=== PATIENT | female | born 1960 | race Caucasian/White ===

== ENCOUNTER 2017-02-01 07:55 | Day surgery (SDC) | payer OTHER ==
[2017-01-31 08:57] VITALS: BMI 32.3
[~2017-02-01 07:55] MED LIST: LACTATED RINGERS 1,000 ML IV SCH; LIDOCAINE 1% 20 ML VIAL (10MG/ML) FOR IV START INTRADERMA PRN
--- NOTE | 2017-02-01 08:11 | P.GSHP ---
History of Present Illness H&P Date: 02/01/17 CHIEF COMPLAINT: Colon screen HISTORY OF PRESENT ILLNESS: The patient is a 56-year-old female who presents for colon screen. Lower endoscopy was offered for further evaluation and management. PAST MEDICAL HISTORY: Please see list. PAST SURGICAL HISTORY: Please see list. MEDICATIONS: Please see list. ALLERGIES: Please see list. SOCIAL HISTORY: No illicit drug use FAMILY HISTORY: No reports of Crohn disease or ulcerative colitis. REVIEW OF ORGAN SYSTEMS: CONSTITUTIONAL: No reports of fevers or chills. PHYSICAL EXAM: VITAL SIGNS: Stable GENERAL: Well-developed pleasant in no acute distress. HEENT: No scleral icterus. Extraocular movements grossly intact. Moist buccal mucosa. NECK: Supple without lymphadenopathy. CHEST: Unlabored respirations. Equal bilateral excursions. CARDIOVASCULAR: Regular rate and rhythm. Distal 2+ pulses. ABDOMEN: Soft, nontender, nondistended. MUSCULOSKELETAL: No clubbing, cyanosis, or edema. ASSESSMENT: 1. Colon screen. PLAN: 1. Recommend proceeding with a lower endoscopy Past Medical History Past Medical History: Asthma, Cancer, Fibromyalgia, GERD/Reflux, Hearing Disorder / Deafness, Hyperlipidemia, Osteoarthritis (OA), Thyroid Disorder Additional Past Medical History / Comment(s): HX COLON CA., TACHYCARDIA, Numbness/tingling LEFT LEG, Herniated disc Back, Irritable Bowel Syndrome, HX OF ELEVATED NLIVER ENZYMES, MIGRAINE HEADACHES History of Any Multi-Drug Resistant Organisms: None Reported Past Surgical History: Back Surgery, Bowel Resection, Section, Cholecystectomy, Hernia Repair, Hysterectomy, Tubal Ligation Additional Past Surgical History / Comment(s): Oophorectomy, BOWEL SURGERY X2. Colonoscopy Past Anesthesia/Blood Transfusion Reactions: Family History of Problems w/ Anesthesia, Motion Sickness, Postoperative Nausea & Vomiting (PONV) Additional Past Anesthesia/Blood Transfusion Reaction / Comment(s): MOTHER ALSO- PONV Past Psychological History: Anxiety, Panic Disorder Additional Psychological History / Comment(s): PANIC ATTACKS Smoking Status: Former smoker Past Alcohol Use History: Rare Additional Past Alcohol Use History / Comment(s): STARTED SMOKING AT AGE 18 QUIT AT AGE 20 2 CIG A DAY Past Drug Use History: None Reported Additional Drug Use History / Comment(s): SMOKED ONLY A TEENAGER - Past Family History Father Family Medical History: Cancer Mother Family Medical History: Deep Vein Thrombosis (DVT) Brother(s) Family Medical History: Cancer Additional Family Medical History / Comment(s): BONE CANCER/ #2 BRAIN CANCER Sister(s) Family Medical History: Cancer, Deep Vein Thrombosis (DVT), Pulmonary Embolus Additional Family Medical History / Comment(s): MELENOMA CANCER Medications and Allergies Home Medications Medication Instructions Recorded Confirmed Type Albuterol Inhaler [Ventolin Hfa 2 puff INHALATION Q4HR PRN 12/26/13 01/31/17 History Inhaler] Atenolol 50 mg PO QAM 12/26/13 01/31/17 History DULoxetine HCL [Cymbalta] 60 mg PO BID 12/26/13 01/31/17 History Hyoscyamine Sulfate [Levbid] 0.375 mg PO BID 12/26/13 01/31/17 History Levothyroxine Sodium [Synthroid] 125 mcg PO DAILY 12/26/13 01/31/17 History Biotin 5 mg PO DAILY 07/28/14 01/31/17 History Budesonide-Formot 160-4.5 Mcg 2 puff INHALATION BID PRN 07/28/14 01/31/17 History [Symbicort 160-4.5 Mcg Inhaler] Cholecalciferol [Vitamin D3] 5,000 unit PO FR 07/28/14 01/31/17 History Rizatriptan Benzoate [Maxalt] 10 mg PO BID PRN 07/28/14 01/31/17 History clonazePAM [Clonazepam] 0.5 mg PO DAILY PRN 01/28/15 01/31/17 History HYDROcodone/APAP 7.5-325MG [[place] 1 each PO Q6HR PRN 03/06/15 01/31/17 History 7.5-325] Esomeprazole Magnesium [NexIUM 40 mg PO BID 01/31/17 01/31/17 History 24Hr] Allergies Allergy/AdvReac Type Severity Reaction Status Date / Time cephalexin monohydrate Allergy Severe Dyspnea Verified 01/31/17 08:25 [From Keflex] Sulfa (Sulfonamide Allergy Severe Dyspnea Verified 01/31/17 08:25 Antibiotics) aspirin Allergy RINGING IN Verified 01/31/17 08:25 EARS, NAUSEA, DIZZY Beef Containing Products Allergy Nausea & Verified 01/31/17 08:25 Vomiting Cephalosporins Allergy Dyspnea, Verified 01/31/17 08:25 Hives clarithromycin Allergy Dyspnea, Verified 01/31/17 08:25 Hives Penicillins Allergy Dyspnea, Verified 01/31/17 08:25 Hives pregabalin [From Lyrica] Allergy BLURRED Verified 01/31/17 08:59 VISION
[2017-02-01 08:37] VITALS: RESP 16; TEMP 97.7
[2017-02-01] MEDS ORDERED: ONDANSETRON 4 MG/2 ML VIAL IVP STA (08:39)
[2017-02-01] MEDS ORDERED: PROPOFOL 10 MG/ML 20 ML VIAL IV ONE (09:03)
--- NOTE | 2017-02-01 09:33 | P.PCN ---
Date of Procedure: 02/01/17 Preoperative Diagnosis: Postoperative Diagnosis: Procedure(s) Performed: Implants: Indications for Procedure: Operative Findings: Description of Procedure: PREOPERATIVE DIAGNOSIS: Colonoscopy screening. History of colon cancer, transverse colon, stage I. POSTOPERATIVE DIAGNOSIS: Colonoscopy screening. History of colon cancer, transverse colon, stage I. Diverticulosis, scattered. External hemorrhoids, grade 3. OPERATION: Colonoscopy to the ileocecal valve and appendiceal orifice. SURGEON: Leonor Tse MD. ANESTHESIA: MAC. INDICATIONS: The patient is a 56-year-old female who presents for colonoscopy screening. She was diagnosed and treated for colon cancer in 2013. Benefits and risks were described and informed consent was obtained. DESCRIPTION OF PROCEDURE: The patient had undergone Prepopik colon prep. She had been brought into the operating room and laid in the left lateral decubitus position. After adequate intravenous sedation, the rectum was examined with 2% lidocaine jelly. External hemorrhoids were encountered. The rectal tone was within normal limits. No lesions were palpated in the rectal vault. An Olympus colonoscope was advanced until the ileocecal valve and appendiceal orifice were clearly viewed. The prep was fair with irrigation needed for clear visualization of the mucosal folds. The scope was removed with visualization of each mucosal fold. Scattered diverticulosis was encountered. No colonic polyps were found. The anastomosis along the transverse colon was carefully visualized without recurrence. No evidence of focal colitis was found. Retroflexion of the scope demonstrated grade 2 internal hemorrhoids without active bleeding or inflammation. The colon was desufflated. The patient had tolerated the procedure well. Withdrawal time was over 6 minutes. FINDINGS: Internal hemorrhoids, grade 2. External prolapsed hemorrhoids. No arteriovenous malformations. No adenomatous polyps. No focal colitis. Colon anastomosis along transverse colon unremarkable. RECOMMENDATIONS: Repeat colonoscopy yearly through 2018, next due in January 2018. Plan - Discharge Summary New Discharge Prescriptions: No Action Albuterol Inhaler [Ventolin Hfa Inhaler] 2 puff INHALATION Q4HR PRN PRN Reason: Shortness Of Breath Atenolol 50 mg PO QAM Hyoscyamine Sulfate [Levbid] 0.375 mg PO BID DULoxetine HCL [Cymbalta] 60 mg PO BID Levothyroxine Sodium [Synthroid] 125 mcg PO DAILY Budesonide-Formot 160-4.5 Mcg [Symbicort 160-4.5 Mcg Inhaler] 2 puff INHALATION BID PRN PRN Reason: asthma Cholecalciferol [Vitamin D3] 5,000 unit PO FR Rizatriptan Benzoate [Maxalt] 10 mg PO BID PRN PRN Reason: Migraine Headache Biotin 5 mg PO DAILY clonazePAM [Clonazepam] 0.5 mg PO DAILY PRN PRN Reason: Anxiety Ondansetron Odt [Zofran Odt] 4 mg PO Q8HR PRN #20 tab PRN Reason: Nausea And Vomiting HYDROcodone/APAP 7.5-325MG [[place] 7.5-325] 1 each PO Q6HR PRN PRN Reason: Pain Esomeprazole Magnesium [NexIUM 24Hr] 40 mg PO BID Discharge Medication List Albuterol Inhaler [Ventolin Hfa Inhaler] 2 puff INHALATION Q4HR PRN 12/26/13 [ History] Atenolol 50 mg PO QAM 12/26/13 [History] DULoxetine HCL [Cymbalta] 60 mg PO BID 12/26/13 [History] Hyoscyamine Sulfate [Levbid] 0.375 mg PO BID 12/26/13 [History] Levothyroxine Sodium [Synthroid] 125 mcg PO DAILY 12/26/13 [History] Biotin 5 mg PO DAILY 07/28/14 [History] Budesonide-Formot 160-4.5 Mcg [Symbicort 160-4.5 Mcg Inhaler] 2 puff INHALATION BID PRN 07/28/14 [History] Cholecalciferol [Vitamin D3] 5,000 unit PO FR 07/28/14 [History] Rizatriptan Benzoate [Maxalt] 10 mg PO BID PRN 07/28/14 [History] clonazePAM [Clonazepam] 0.5 mg PO DAILY PRN 01/28/15 [History] Ondansetron Odt [Zofran Odt] 4 mg PO Q8HR PRN #20 tab 02/04/15 [Rx] HYDROcodone/APAP 7.5-325MG [[place] 7.5-325] 1 each PO Q6HR PRN 03/06/15 [History] Esomeprazole Magnesium [NexIUM 24Hr] 40 mg PO BID 01/31/17 [History] Follow up Appointment(s)/Referral(s): Leonor Tse MD [STAFF PHYSICIAN] - As Needed Patient Instructions/Handouts: Diverticulosis (DC), Diverticulitis Diet (DC), Hemorrhoids (GEN) Activity/Diet/Wound Care/Special Instructions: Followup colonoscopy January 2018 Discharge Disposition: HOME SELF-CARE
[2017-02-01 10:09] VITALS: BP 105/70; PULSE 55
== END 2017-02-01 10:21 | disposition home or self-care (01) ==
LOC: ORWHC2ENDO 07:55
PROVIDERS: ATTEND Surgery Plastic and Reconstructive Surgery
DX: Z12.11 Encounter for screening for malignant neoplasm of colon (principal); Z85.038 Personal history of other malignant neoplasm of large intestine; E78.5 Hyperlipidemia, unspecified; M79.7 Fibromyalgia; E07.9 Disorder of thyroid, unspecified; J45.909 Unspecified asthma, uncomplicated; K64.1 Second degree hemorrhoids; K64.8 Other hemorrhoids; K57.30 Diverticulosis of large intestine without perforation or abscess without bleeding; F41.9 Anxiety disorder, unspecified; K21.9 Gastro-esophageal reflux disease without esophagitis; F41.0 Panic disorder [episodic paroxysmal anxiety]; G43.909 Migraine, unspecified, not intractable, without status migrainosus; Z88.1 Allergy status to other antibiotic agents; Z88.2 Allergy status to sulfonamides; Z88.8 Allergy status to other drugs, medicaments and biological substances; Z88.0 Allergy status to penicillin; Z87.891 Personal history of nicotine dependence; Z79.899 Other long term (current) drug therapy; Z79.51 Long term (current) use of inhaled steroids; Z79.891 Long term (current) use of opiate analgesic
CPT/HCPCS: J2405; J2704; G0105; 45378

== ENCOUNTER 2018-02-14 10:28 | Day surgery (SDC) | payer OTHER ==
[2018-02-13 12:20] VITALS: BMI 30.7
--- NOTE | 2018-02-14 09:56 | P.GSHP ---
History of Present Illness H&P Date: 02/14/18 CHIEF COMPLAINT: Colon cancer HISTORY OF PRESENT ILLNESS: The patient is a 57-year-old female who presents for colon cancer. Lower endoscopy was offered for further evaluation and management. PAST MEDICAL HISTORY: Please see list. PAST SURGICAL HISTORY: Please see list. MEDICATIONS: Please see list. ALLERGIES: Please see list. SOCIAL HISTORY: No illicit drug use FAMILY HISTORY: No reports of Crohn disease or ulcerative colitis. REVIEW OF ORGAN SYSTEMS: CONSTITUTIONAL: No reports of fevers or chills. PHYSICAL EXAM: VITAL SIGNS: Stable GENERAL: Well-developed pleasant in no acute distress. HEENT: No scleral icterus. Extraocular movements grossly intact. Moist buccal mucosa. NECK: Supple without lymphadenopathy. CHEST: Unlabored respirations. Equal bilateral excursions. CARDIOVASCULAR: Regular rate and rhythm. Distal 2+ pulses. ABDOMEN: Soft, nontender, nondistended. MUSCULOSKELETAL: No clubbing, cyanosis, or edema. ASSESSMENT: 1. Colon cancer PLAN: 1. Recommend proceeding with a lower endoscopy Past Medical History Past Medical History: Asthma, Cancer, Fibromyalgia, GERD/Reflux, Hearing Disorder / Deafness, Hyperlipidemia, Osteoarthritis (OA), Thyroid Disorder Additional Past Medical History / Comment(s): HX COLON CA., TACHYCARDIA, Numbness/tingling LEFT LEG, Herniated disc Back, Irritable Bowel Syndrome, HX OF ELEVATED LIVER ENZYMES, MIGRAINE HEADACHES History of Any Multi-Drug Resistant Organisms: None Reported Past Surgical History: Back Surgery, Bowel Resection, Section, Cholecystectomy, Hernia Repair, Hysterectomy, Tubal Ligation Additional Past Surgical History / Comment(s): Oophorectomy, BOWEL SURGERY X2. Colonoscopy Past Anesthesia/Blood Transfusion Reactions: Family History of Problems w/ Anesthesia, Motion Sickness, Postoperative Nausea & Vomiting (PONV) Additional Past Anesthesia/Blood Transfusion Reaction / Comment(s): MOTHER ALSO- PONV Smoking Status: Former smoker - Past Family History Father Family Medical History: Cancer Additional Family Medical History / Comment(s): PROSTATE, LUNG CANCER Mother Family Medical History: Deep Vein Thrombosis (DVT) Brother(s) Family Medical History: Cancer Additional Family Medical History / Comment(s): BONE CANCER/ #2 BRAIN CANCER Sister(s) Family Medical History: Cancer, Deep Vein Thrombosis (DVT), Pulmonary Embolus Additional Family Medical History / Comment(s): MELENOMA CANCER Medications and Allergies Home Medications Medication Instructions Recorded Confirmed Type Albuterol Inhaler [Ventolin Hfa 2 puff INHALATION Q4HR PRN 12/26/13 02/13/18 History Inhaler] Atenolol 50 mg PO QAM 12/26/13 02/13/18 History DULoxetine HCL [Cymbalta] 60 mg PO BID 12/26/13 02/13/18 History Levothyroxine Sodium [Synthroid] 125 mcg PO DAILY 12/26/13 02/13/18 History Budesonide-Formot 160-4.5 Mcg 2 puff INHALATION BID PRN 07/28/14 02/13/18 History [Symbicort 160-4.5 Mcg Inhaler] Rizatriptan Benzoate [Maxalt] 10 mg PO BID PRN 07/28/14 02/13/18 History Ondansetron Odt [Zofran Odt] 4 mg PO Q8HR PRN #20 tab 02/04/15 02/13/18 Rx HYDROcodone/APAP 7.5-325MG [[place] 1 each PO Q6HR PRN 03/06/15 02/13/18 History 7.5-325] Esomeprazole Magnesium [NexIUM 40 mg PO BID 01/31/17 02/13/18 History 24Hr] Allergies Allergy/AdvReac Type Severity Reaction Status Date / Time cephalexin monohydrate Allergy Severe Dyspnea Verified 02/01/17 08:33 [From Keflex] Sulfa (Sulfonamide Allergy Severe Anaphylaxis Verified 02/13/18 11:54 Antibiotics) aspirin Allergy RINGING IN Verified 02/01/17 08:33 EARS, NAUSEA, DIZZY Beef Containing Products Allergy Nausea & Verified 02/01/17 08:33 Vomiting Cephalosporins Allergy Dyspnea, Verified 02/01/17 08:33 Hives clarithromycin Allergy Dyspnea, Verified 02/01/17 08:33 Hives Penicillins Allergy Dyspnea, Verified 02/01/17 08:33 Hives pregabalin [From Lyrica] Allergy BLURRED Verified 02/01/17 08:33 VISION
[2018-02-14 11:41] VITALS: RESP 16; TEMP 99.7
[2018-02-14] MEDS ORDERED: ONDANSETRON 4 MG/2 ML VIAL IVP ONE (11:47)
[2018-02-14] MEDS ORDERED: METOCLOPRAMIDE 5 MG/ML 2 ML VIAL IVP ONE (11:48)
[2018-02-14] MEDS ORDERED: PROPOFOL 10 MG/ML 20 ML VIAL IV ONE (12:16)
--- NOTE | 2018-02-14 12:29 | P.PCN ---
Date of Procedure: 02/14/18 Description of Procedure: PREOPERATIVE DIAGNOSIS: Colonoscopy screening. History of colon cancer, transverse colon, stage I. POSTOPERATIVE DIAGNOSIS: Colonoscopy screening. History of colon cancer, transverse colon, stage I. Diverticulosis, scattered. External hemorrhoids, grade 3. OPERATION: Colonoscopy to the ileocecal valve and appendiceal orifice. SURGEON: Leonor Tse MD. ANESTHESIA: MAC. INDICATIONS: The patient is a 57-year-old female who presents for colonoscopy screening. She was diagnosed and treated for colon cancer in 2013. Benefits and risks were described and informed consent was obtained. DESCRIPTION OF PROCEDURE: The patient had undergone Prepopik colon prep. She had been brought into the operating room and laid in the left lateral decubitus position. After adequate intravenous sedation, the rectum was examined with 2% lidocaine jelly. External hemorrhoids were encountered. The rectal tone was within normal limits. No lesions were palpated in the rectal vault. An Olympus colonoscope was advanced until the ileocecal valve and appendiceal orifice were clearly viewed. The prep was fair. The scope was removed with visualization of each mucosal fold. Scattered diverticulosis was encountered. No colonic polyps were found. The anastomosis along the transverse colon was carefully visualized without recurrence. No evidence of focal colitis was found. Retroflexion of the scope demonstrated grade 2 internal hemorrhoids without active bleeding or inflammation. The colon was desufflated. The patient had tolerated the procedure well. Withdrawal time was over 6 minutes. FINDINGS: Internal hemorrhoids, grade 2. External prolapsed hemorrhoids. No arteriovenous malformations. No adenomatous polyps. No focal colitis. Colon anastomosis along transverse colon unremarkable. RECOMMENDATIONS: Repeat colonoscopy yearly through 2018, next due in January 2019. Plan - Discharge Summary New Discharge Prescriptions: No Action Albuterol Inhaler [Ventolin Hfa Inhaler] 2 puff INHALATION Q4HR PRN PRN Reason: Shortness Of Breath Atenolol 50 mg PO QAM DULoxetine HCL [Cymbalta] 60 mg PO BID Levothyroxine Sodium [Synthroid] 125 mcg PO DAILY Budesonide-Formot 160-4.5 Mcg [Symbicort 160-4.5 Mcg Inhaler] 2 puff INHALATION BID PRN PRN Reason: asthma Rizatriptan Benzoate [Maxalt] 10 mg PO BID PRN PRN Reason: Migraine Headache Ondansetron Odt [Zofran Odt] 4 mg PO Q8HR PRN #20 tab PRN Reason: Nausea And Vomiting HYDROcodone/APAP 7.5-325MG [[place] 7.5-325] 1 each PO Q6HR PRN PRN Reason: Pain Esomeprazole Magnesium [NexIUM 24Hr] 40 mg PO BID Discharge Medication List Albuterol Inhaler [Ventolin Hfa Inhaler] 2 puff INHALATION Q4HR PRN 12/26/13 [ History] Atenolol 50 mg PO QAM 12/26/13 [History] DULoxetine HCL [Cymbalta] 60 mg PO BID 12/26/13 [History] Levothyroxine Sodium [Synthroid] 125 mcg PO DAILY 12/26/13 [History] Budesonide-Formot 160-4.5 Mcg [Symbicort 160-4.5 Mcg Inhaler] 2 puff INHALATION BID PRN 07/28/14 [History] Rizatriptan Benzoate [Maxalt] 10 mg PO BID PRN 07/28/14 [History] Ondansetron Odt [Zofran Odt] 4 mg PO Q8HR PRN #20 tab 02/04/15 [Rx] HYDROcodone/APAP 7.5-325MG [[place] 7.5-325] 1 each PO Q6HR PRN 03/06/15 [History] Esomeprazole Magnesium [NexIUM 24Hr] 40 mg PO BID 01/31/17 [History]
[2018-02-14 12:53] VITALS: BP 129/72; PULSE 86
== END 2018-02-14 13:07 | disposition home or self-care (01) ==
LOC: ORWHC2ENDO 10:28
PROVIDERS: ATTEND Surgery Plastic and Reconstructive Surgery
DX: Z12.11 Encounter for screening for malignant neoplasm of colon (principal); K57.30 Diverticulosis of large intestine without perforation or abscess without bleeding; K64.1 Second degree hemorrhoids; K64.8 Other hemorrhoids; Z85.038 Personal history of other malignant neoplasm of large intestine; Z90.49 Acquired absence of other specified parts of digestive tract; Z98.0 Intestinal bypass and anastomosis status; J45.909 Unspecified asthma, uncomplicated; M79.7 Fibromyalgia; K21.9 Gastro-esophageal reflux disease without esophagitis; H91.90 Unspecified hearing loss, unspecified ear; E78.5 Hyperlipidemia, unspecified; M19.90 Unspecified osteoarthritis, unspecified site; E07.9 Disorder of thyroid, unspecified; I10 Essential (primary) hypertension; R00.0 Tachycardia, unspecified; K58.9 Irritable bowel syndrome, unspecified; G43.909 Migraine, unspecified, not intractable, without status migrainosus; Z79.890 Hormone replacement therapy; Z79.51 Long term (current) use of inhaled steroids; Z79.899 Other long term (current) drug therapy; Z88.6 Allergy status to analgesic agent; Z88.1 Allergy status to other antibiotic agents; Z88.0 Allergy status to penicillin; Z88.2 Allergy status to sulfonamides; Z88.8 Allergy status to other drugs, medicaments and biological substances; Z91.018 Allergy to other foods; Z87.891 Personal history of nicotine dependence
CPT/HCPCS: J2765; J2405; J2704; G0105; 45378

== ENCOUNTER → 2018-05-25 | Outpatient (CLI) | payer OTHER ==
--- NOTE | 2018-05-25 08:09 | CT ---
EXAMINATION TYPE: CT abdomen w con DATE OF EXAM: 05/25/2018 COMPARISON: March 06, 2015 HISTORY: RUQ pain, history of colon CA CT DLP: 791.5 mGycm CONTRAST: CT scan of the abdomen is performed with Oral Contrast and with IV Contrast, patient injected with 10 0 mL of Isovue 300. FINDINGS: LUNG BASES-: No visible nodule. No infiltrate. LIVER/GB: The gallbladder surgically absent. There is evidence of hepatic steatosis. Right hepatic lobe appears to be enlarged. No space occupying hepatic lesion. Biliary tree is of normal caliber. PANCREAS: No inflammation. No distinct mass. SPLEEN: No splenic enlargement. No lesion seen. ADRENALS: No nodule. No thickening. KIDNEYS/BLADDER: No hydronephrosis. No nephrolithiasis. No distinct renal mass. Urinary bladder g rossly unremarkable. BOWEL: Rings of sutures within the right upper quadrant correlate to the region of the hepatic flexur e/proximal transverse colon. No evidence for bowel obstruction or inflammatory process. No evidence f or leak. Nonvisualization of the appendix. Normal bowel caliber. No inflammation. Gastric diverticu lum is again noted posteriorly. LYMPH NODES: No greater than 1cm abdominal or pelvic lymph nodes are appreciated. AORTA: No significant abnormality. OSSEOUS STRUCTURES: No significant abnormality is seen. OTHER: No significant additional abnormality is seen. IMPRESSION: 1. Colonic postoperative change. 2. Gastric diverticulum. 3. Fatty liver with enlargement of the right hepatic lobe. 4. No acute process is appreciated.
== END | disposition home or self-care (01) ==
LOC: RADCTMAIN 07:22
PROVIDERS: ATTEND Family Medicine
DX: K31.4 Gastric diverticulum (principal); K76.0 Fatty (change of) liver, not elsewhere classified; Z98.890 Other specified postprocedural states
CPT/HCPCS: 74160; Q9967

== ENCOUNTER → 2019-04-01 | Outpatient (CLI) | payer OTHER ==
--- NOTE | 2019-04-03 09:41 | MM ---
Reason for exam: screening (asymptomatic). Last mammogram was performed 5 years and 4 months ago. History: Patient is postmenopausal and has history of colon cancer at age 54. Physical Findings: A clinical breast exam by your physician is recommended on an annual basis and results should be correlated with mammographic findings. MG Screening Mammo w CAD Bilateral CC and MLO view(s) were taken. Prior study comparison: November 15, 2013, bilateral digital screening mammo w/CAD. February 21, 2012, mammogram, performed at [facility]. January 18, 2005, bilateral screening mammogram. There are scattered fibroglandular densities. There is chronic nodularity bilaterally. No significant changes when compared with prior studies. ASSESSMENT: Benign, BI-RAD 2 RECOMMENDATION: Routine screening mammogram of both breasts in 1 year.
== END | disposition home or self-care (01) ==
LOC: RADMAMWWP 16:54
PROVIDERS: ATTEND Family Medicine
DX: Z12.31 Encounter for screening mammogram for malignant neoplasm of breast (principal)
CPT/HCPCS: 77067

== ENCOUNTER → 2019-10-03 | Day surgery (SDC) | payer OTHER ==
[2019-10-01 10:26] VITALS: BMI 32.3
[~2019-10-03] MED LIST changes: +LIDOCAINE 1% INJ 10MG/ML (20 ML MDV) ONE; +PROPOFOL 10 MG/ML 20 ML VIAL IV ONE
--- NOTE | 2019-10-03 08:53 | P.GSHP ---
History of Present Illness H&P Date: 10/03/19 CHIEF COMPLAINT: GERD and colon screen HISTORY OF PRESENT ILLNESS: The patient is a 59-year-old female who presents with gastroesophageal reflux disease and need for colon screen. Upper and lower endoscopy were offered for further evaluation and management. PAST MEDICAL HISTORY: Please see list. PAST SURGICAL HISTORY: Please see list. MEDICATIONS: Please see list. ALLERGIES: Please see list. SOCIAL HISTORY: No illicit drug use FAMILY HISTORY: No reports of Crohn disease or ulcerative colitis. REVIEW OF ORGAN SYSTEMS: CONSTITUTIONAL: No reports of fevers or chills. GI: Denies any blood in stools or constipation. PHYSICAL EXAM: VITAL SIGNS: Stable GENERAL: Well-developed pleasant in no acute distress. HEENT: No scleral icterus. Extraocular movements grossly intact. Moist buccal mucosa. NECK: Supple without lymphadenopathy. CHEST: Unlabored respirations. Equal bilateral excursions. CARDIOVASCULAR: Regular rate and rhythm. Distal 2+ pulses. ABDOMEN: Soft, nondistended. MUSCULOSKELETAL: No clubbing, cyanosis, or edema. ASSESSMENT: 1. Gastroesophageal reflux disease 2. Colon screen. PLAN: 1. Recommend proceeding with an upper and lower endoscopy Past Medical History Past Medical History: Asthma, Cancer, Fibromyalgia, GERD/Reflux, Hearing Disorder / Deafness, Hyperlipidemia, Osteoarthritis (OA), Thyroid Disorder Additional Past Medical History / Comment(s): HX COLON CA., TACHYCARDIA, Herniated disc Back, Irritable Bowel Syndrome, HX OF ELEVATED LIVER ENZYMES and enlarged liver, MIGRAINE HEADACHES, insomnia, ulcer, diarrrhea, History of Any Multi-Drug Resistant Organisms: None Reported Past Surgical History: Back Surgery, Bowel Resection, Section, Cholecystectomy, Hernia Repair, Hysterectomy Additional Past Surgical History / Comment(s): david oophorectomy, BOWEL SURGERY X 2- 5" colon removed, Past Anesthesia/Blood Transfusion Reactions: Family History of Problems w/ Anesthesia, Postoperative Nausea & Vomiting (PONV) Additional Past Anesthesia/Blood Transfusion Reaction / Comment(s): MOTHER ALSO- PONV Smoking Status: Former smoker - Past Family History Father Family Medical History: Cancer Additional Family Medical History / Comment(s): brain and bone Mother Family Medical History: Deep Vein Thrombosis (DVT) Brother(s) Family Medical History: Cancer Additional Family Medical History / Comment(s): BONE CANCER/ #2 BRAIN CANCER Sister(s) Family Medical History: Cancer, Deep Vein Thrombosis (DVT) Additional Family Medical History / Comment(s): MELENOMA CANCER Medications and Allergies Home Medications Medication Instructions Recorded Confirmed Type Albuterol Inhaler [Ventolin Hfa 2 puff INHALATION Q4HR PRN 12/26/13 10/01/19 History Inhaler] Atenolol 50 mg PO QAM 12/26/13 10/01/19 History DULoxetine HCL [Cymbalta] 60 mg PO BID 12/26/13 10/01/19 History Levothyroxine Sodium [Synthroid] 125 mcg PO DAILY 12/26/13 10/01/19 History Budesonide-Formot 160-4.5 Mcg 2 puff INHALATION BID PRN 07/28/14 10/01/19 History [Symbicort 160-4.5 Mcg Inhaler] Rizatriptan Benzoate [Maxalt] 10 mg PO BID PRN 07/28/14 10/01/19 History Ondansetron Odt [Zofran Odt] 4 mg PO Q8HR PRN #20 tab 02/04/15 10/01/19 Rx Esomeprazole Magnesium [NexIUM 40 mg PO BID 01/31/17 10/01/19 History 24Hr] Fenofibrate 120 mg PO DAILY 10/01/19 10/01/19 History traZODone HCL 25 mg PO HS PRN 10/01/19 10/01/19 History Allergies Allergy/AdvReac Type Severity Reaction Status Date / Time cephalexin monohydrate Allergy Severe Anaphylaxis Verified 10/01/19 10:13 [From Keflex] Sulfa (Sulfonamide Allergy Severe Rash/Hives Verified 10/01/19 10:13 Antibiotics) aspirin Allergy RINGING IN Verified 10/01/19 10:13 EARS, hives Beef Containing Products Allergy Nausea & Verified 10/01/19 10:13 Vomiting,diarrhea Cephalosporins Allergy Dyspnea, Verified 10/01/19 10:13 Hives clarithromycin Allergy Dyspnea, Verified 10/01/19 10:13 Hives Penicillins Allergy Dyspnea, Verified 10/01/19 10:13 Hives pregabalin [From Lyrica] Allergy BLURRED Verified 10/01/19 10:13 VISION
[2019-10-03 09:59] VITALS: RESP 16; TEMP 98.2
[2019-10-03 10:54] VITALS: BP 113/74; PULSE 69
--- NOTE | 2019-10-03 15:25 | P.PCN ---
Date of Procedure: 10/03/19 Description of Procedure: PREOPERATIVE DIAGNOSIS: Gastroesophageal reflux disease. POSTOPERATIVE DIAGNOSIS: Superficial gastric ulcers Gastritis. Gastroesophageal reflux disease. Diaphragmatic hiatal hernia OPERATION: Esophagogastroduodenoscopy with biopsies along antrum. SURGEON: Leonor Tse MD ANESTHESIA: MAC. INDICATIONS: The patient is a 59-year-old female who presents with a history of reflux disease. Benefits and risks of the procedure were described. Informed consent was obtained. DESCRIPTION: The patient was brought into the endoscopy suite and laid in the left lateral decubitus position. An Olympus gastroscope was passed along the posterior oropharynx down to the distal esophagus where the squamocolumnar junction was encountered at 35 cm from the incisors. The stomach was entered and no bile reflux was found. Additional findings are listed below. Biopsies with cold forceps were obtained of the antrum. The first through third portion of the duodenum was examined and unremarkable. Retroflexion of the scope confirmed Hill grade 3 lower esophageal valve. The squamocolumnar junction demonstrated LA grade B erosive esophagitis. The stomach was desufflated. The patient tolerated the procedure well. FINDINGS: Squamocolumnar junction 35 cm from the incisors. Diaphragmatic hiatus at 37 cm. Hiatal hernia, 2 cm Hill grade 3 lower esophageal valve. LA grade B erosive esophagitis. No active duodenitis. Chronic gastritis Superficial gastric ulcers RECOMMENDATIONS: Upper endoscopy as needed.
--- NOTE | 2019-10-03 15:28 | P.PCN ---
Date of Procedure: 10/03/19 Description of Procedure: PREOPERATIVE DIAGNOSIS: History of colon cancer Colonoscopy surveillance History of partial colectomy POSTOPERATIVE DIAGNOSIS: History of colon cancer History of partial colectomy Colonoscopy surveillance Moderate to severe sigmoid diverticulosis OPERATION: Colonoscopy to the ileocecal valve and appendiceal orifice. SURGEON: Leonor Tse MD. ANESTHESIA: MAC. INDICATIONS: The patient is a 59-year-old female who presents for colonoscopy surveillance with history of colon cancer. Last colonoscopy within 5 years. Benefits and risks were described and informed consent was obtained. DESCRIPTION OF PROCEDURE: The patient had undergone Suprep. She had been brought into the operating room and laid in the left lateral decubitus position. After adequate intravenous sedation, the rectum was examined with 2% lidocaine jelly. No external hemorrhoids were encountered. The rectal tone was within normal limits. No lesions were palpated in the rectal vault. An Olympus colonoscope was advanced until the ileocecal valve and appendiceal orifice were clearly viewed. The prep was fair. Moderate to severe sigmoid diverticulosis was encountered with redundant sigmoid colon. No colonic polyps were found. No evidence of focal colitis was found. Retroflexion of the scope demonstrated grade 1 internal hemorrhoids without active bleeding or inflammation. The colon was desufflated. The patient had tolerated the procedure well. Withdrawal time was over 6 minutes. FINDINGS: Aronchick preparation quality scale 3 (1-5) Internal hemorrhoids, grade 1 No external prolapsed hemorrhoids. No arteriovenous malformations. No adenomatous polyps. No focal colitis. Moderate to severe sigmoid diverticulosis RECOMMENDATIONS: Lower endoscopy in 3 years, 2022 Plan - Discharge Summary Discharge Rx Participant: No New Discharge Prescriptions: No Action Albuterol Inhaler [Ventolin Hfa Inhaler] 2 puff INHALATION Q4HR PRN PRN Reason: Shortness Of Breath Atenolol 50 mg PO QAM DULoxetine HCL [Cymbalta] 60 mg PO BID Levothyroxine Sodium [Synthroid] 125 mcg PO DAILY Budesonide-Formot 160-4.5 Mcg [Symbicort 160-4.5 Mcg Inhaler] 2 puff INHALATION BID PRN PRN Reason: asthma Rizatriptan Benzoate [Maxalt] 10 mg PO BID PRN PRN Reason: Migraine Headache Ondansetron Odt [Zofran Odt] 4 mg PO Q8HR PRN #20 tab PRN Reason: Nausea And Vomiting Esomeprazole Magnesium [NexIUM 24Hr] 40 mg PO BID Fenofibrate 120 mg PO DAILY traZODone HCL 25 mg PO HS PRN PRN Reason: sleep Discharge Medication List Albuterol Inhaler [Ventolin Hfa Inhaler] 2 puff INHALATION Q4HR PRN 12/26/13 [History] Atenolol 50 mg PO QAM 12/26/13 [History] DULoxetine HCL [Cymbalta] 60 mg PO BID 12/26/13 [History] Levothyroxine Sodium [Synthroid] 125 mcg PO DAILY 12/26/13 [History] Budesonide-Formot 160-4.5 Mcg [Symbicort 160-4.5 Mcg Inhaler] 2 puff INHALATION BID PRN 07/28/14 [History] Rizatriptan Benzoate [Maxalt] 10 mg PO BID PRN 07/28/14 [History] Ondansetron Odt [Zofran Odt] 4 mg PO Q8HR PRN #20 tab 02/04/15 [Rx] Esomeprazole Magnesium [NexIUM 24Hr] 40 mg PO BID 01/31/17 [History] Fenofibrate 120 mg PO DAILY 10/01/19 [History] traZODone HCL 25 mg PO HS PRN 10/01/19 [History] Follow up Appointment(s)/Referral(s): Leonor Tse MD [STAFF PHYSICIAN] - 10/15/19 Patient Instructions/Handouts: *[facility] - (Anesthesia) Endoscopy Discharge Instructions, Gastritis (DC), Diverticulosis (DC), Colorectal Polyps (DC), Diverticulosis Diet (GEN) Discharge Disposition: HOME SELF-CARE
== END | disposition home or self-care (01) ==
LOC: ORWHC2ENDO 09:39
PROVIDERS: ATTEND Surgery Plastic and Reconstructive Surgery
DX: Z12.11 Encounter for screening for malignant neoplasm of colon (principal); K29.50 Unspecified chronic gastritis without bleeding; K44.9 Diaphragmatic hernia without obstruction or gangrene; K25.9 Gastric ulcer, unspecified as acute or chronic, without hemorrhage or perforation; K57.30 Diverticulosis of large intestine without perforation or abscess without bleeding; K64.0 First degree hemorrhoids; J45.909 Unspecified asthma, uncomplicated; M79.7 Fibromyalgia; H91.90 Unspecified hearing loss, unspecified ear; E78.5 Hyperlipidemia, unspecified; M19.90 Unspecified osteoarthritis, unspecified site; E07.9 Disorder of thyroid, unspecified; Z85.038 Personal history of other malignant neoplasm of large intestine; R00.0 Tachycardia, unspecified; K58.9 Irritable bowel syndrome, unspecified; R16.0 Hepatomegaly, not elsewhere classified; G47.00 Insomnia, unspecified; Z90.49 Acquired absence of other specified parts of digestive tract; Z90.710 Acquired absence of both cervix and uterus; Z87.891 Personal history of nicotine dependence; Z80.8 Family history of malignant neoplasm of other organs or systems; Z82.49 Family history of ischemic heart disease and other diseases of the circulatory system; Z79.890 Hormone replacement therapy; Z79.51 Long term (current) use of inhaled steroids; Z79.899 Other long term (current) drug therapy; Z88.6 Allergy status to analgesic agent; Z88.1 Allergy status to other antibiotic agents; Z88.0 Allergy status to penicillin; Z88.2 Allergy status to sulfonamides; Z88.8 Allergy status to other drugs, medicaments and biological substances; Z91.018 Allergy to other foods
CPT/HCPCS: 43239; J2001; J2704; G0121; 88305; 88342

== ENCOUNTER → 2022-12-27 | Outpatient (CLI) | payer OTHER ==
--- NOTE | 2022-12-28 21:15 | MM ---
Reason for Exam: Screening (asymptomatic). Last mammogram was performed 3 year(s) and 9 month(s) ago. Patient History: Menarche at age 11. First Full-Term at age 23. Left ovary removed at age 40. Right ovary removed at age 40. Hysterectomy at age 39. Postmenopausal. Patient has history of breast feeding. Colorectal cancer, age 54. Risk Values: Eulalia 5 year model risk: 1.5%. NCI Lifetime model risk: 7.0%. Prior Study Comparison: 02/21/2012 Screening Mammogram, [facility]. 11/15/2013 Bilateral Screening Mammogram, LOC[facility]IN [facility]. 04/01/2019 Bilateral Screening Mammogram, LOCATED [facility]IN [facility]. Tissue Density: There are scattered fibroglandular densities. Findings: Analyzed By CAD. Chronic bilateral nodularity and areas of asymmetric densities. There is no suspicious group of microcalcifications or new suspicious mass in either breast. Overall Assessment: Benign, BI-RAD 2 Management: Screening Mammogram of both breasts in 1 year. . Patient should continue monthly self-breast exams. A clinical breast exam by your physician is recommended on an annual basis. This exam should not preclude additional follow-up of suspicious palpable abnormalities. Note on Eulalia scores and lifetime risk: 1. A Eulalia score greater than 3% is considered moderate risk. If this is the case, consider specialist referral to assess eligibility for a risk reducing agent. 2. If overall lifetime risk for the development of breast cancer is 20% or higher, the patient may qualify for future screening with alternating mammogram and breast MRI. Electronically signed and approved by: Sarah Frank M.D. Radiologist
== END | disposition home or self-care (01) ==
LOC: RADMAMWWP 16:35
PROVIDERS: ATTEND Family Medicine
DX: Z12.31 Encounter for screening mammogram for malignant neoplasm of breast (principal); Z78.0 Asymptomatic menopausal state
CPT/HCPCS: 77063; 77067

== ENCOUNTER 2023-02-02 08:52 | Day surgery (SDC) | payer OTHER ==
[2023-01-31 11:47] VITALS: BMI 25.0
[~2023-02-02 08:52] MED LIST changes: +LIDOCAINE 1% (10MG/ML) FOR IV START INTRADERMA PRN; -LIDOCAINE 1% 20 ML VIAL (10MG/ML) FOR IV START INTRADERMA PRN; -LIDOCAINE 1% INJ 10MG/ML (20 ML MDV) ONE; -PROPOFOL 10 MG/ML 20 ML VIAL IV ONE
[2023-02-02 09:22] VITALS: TEMP 97.9
[2023-02-02] MEDS ORDERED: PROPOFOL 10 MG/ML 20 ML VIAL IV ONE (09:42)
[2023-02-02 10:24] VITALS: BP 103/61; PULSE 53; RESP 12
--- NOTE | 2023-02-02 10:54 | P.GSHP ---
History of Present Illness H&P Date: 02/02/23 CHIEF COMPLAINT: Colon screen HISTORY OF PRESENT ILLNESS: The patient is a 62-year-old female who presents for colon screen. Lower endoscopy was offered for further evaluation and management. PAST MEDICAL HISTORY: Please see list. PAST SURGICAL HISTORY: Please see list. MEDICATIONS: Please see list. ALLERGIES: Please see list. SOCIAL HISTORY: No illicit drug use FAMILY HISTORY: No reports of Crohn disease or ulcerative colitis. REVIEW OF ORGAN SYSTEMS: CONSTITUTIONAL: No reports of fevers or chills. PHYSICAL EXAM: VITAL SIGNS: Stable GENERAL: Well-developed pleasant in no acute distress. HEENT: No scleral icterus. Extraocular movements grossly intact. Moist buccal mucosa. NECK: Supple without lymphadenopathy. CHEST: Unlabored respirations. Equal bilateral excursions. CARDIOVASCULAR: Regular rate and rhythm. Distal 2+ pulses. ABDOMEN: Soft, nontender, nondistended. MUSCULOSKELETAL: No clubbing, cyanosis, or edema. ASSESSMENT: 1. Colon screen. PLAN: 1. Recommend proceeding with a lower endoscopy Past Medical History Past Medical History: Asthma, Cancer, Fibromyalgia, GERD/Reflux, Hearing Disorder / Deafness, Osteoarthritis (OA), Thyroid Disorder Additional Past Medical History / Comment(s): HX COLON CA., TACHYCARDIA, Herniated disc Back, Irritable Bowel Syndrome, MIGRAINE HEADACHES, insomnia, ulcer, diarrrhea, Tinnitus both ears History of Any Multi-Drug Resistant Organisms: None Reported Past Surgical History: Appendectomy, Back Surgery, Bowel Resection, Section, Cholecystectomy, Hernia Repair, Hysterectomy Additional Past Surgical History / Comment(s): david oophorectomy, BOWEL SURGERY X 2- 5" colon removed, Past Anesthesia/Blood Transfusion Reactions: Family History of Problems w/ Anesthesia, Postoperative Nausea & Vomiting (PONV) Additional Past Anesthesia/Blood Transfusion Reaction / Comment(s): MOTHER ALSO- PONV Smoking Status: Former smoker - Past Family History Father Family Medical History: Cancer Additional Family Medical History / Comment(s): brain and bone Mother Family Medical History: Deep Vein Thrombosis (DVT) Brother(s) Family Medical History: Cancer Additional Family Medical History / Comment(s): BONE CANCER/ #2 BRAIN CANCER ,thyroid cancer Sister(s) Family Medical History: Cancer, Deep Vein Thrombosis (DVT) Additional Family Medical History / Comment(s): MELENOMA CANCER Medications and Allergies Home Medications Medication Instructions Recorded Confirmed Type Albuterol Inhaler [Ventolin Hfa 2 puff INHALATION Q4HR PRN 12/26/13 01/31/23 History Inhaler] Atenolol 50 mg PO QAM 12/26/13 01/31/23 History DULoxetine HCL [Cymbalta] 60 mg PO BID 12/26/13 01/31/23 History Levothyroxine Sodium [Synthroid] 125 mcg PO DAILY 12/26/13 01/31/23 History Budesonide-Formot 160-4.5 Mcg 2 puff INHALATION BID PRN 07/28/14 01/31/23 History [Symbicort 160-4.5 Mcg Inhaler] Rizatriptan Benzoate [Maxalt] 10 mg PO BID PRN 07/28/14 01/31/23 History Ondansetron Odt [Zofran ODT] 4 mg PO Q8HR PRN #20 tab 02/04/15 01/31/23 Rx Esomeprazole Magnesium [NexIUM 40 mg PO BID 01/31/17 01/31/23 History 24Hr] traZODone HCL 25 mg PO HS PRN 10/01/19 01/31/23 History Pantoprazole [Protonix] 40 mg PO BID 01/31/23 01/31/23 History Allergies Allergy/AdvReac Type Severity Reaction Status Date / Time cephalexin monohydrate Allergy Severe Anaphylaxis Verified 02/02/23 09:08 [From Keflex] Sulfa (Sulfonamide Allergy Severe Rash/Hives Verified 02/02/23 09:08 Antibiotics) aspirin Allergy RINGING IN Verified 02/02/23 09:08 EARS, hives Beef Containing Products Allergy Nausea & Verified 02/02/23 09:08 Vomiting,diarrhea Cephalosporins Allergy Dyspnea, Verified 02/02/23 09:08 Hives clarithromycin Allergy Dyspnea, Verified 02/02/23 09:08 Hives Penicillins Allergy Dyspnea, Verified 02/02/23 09:08 Hives pregabalin [From Lyrica] Allergy BLURRED Verified 02/02/23 09:08 [facility] - Exam Vital Signs Temp Pulse Resp BP Pulse Ox 97.9 F 49 L 16 131/63 99 02/02/23 09:15 02/02/23 09:15 02/02/23 09:15 02/02/23 09:15 02/02/23 09:15
--- NOTE | 2023-02-02 11:32 | P.PCN ---
Date of Procedure: 02/02/23 Description of Procedure: PREOPERATIVE DIAGNOSIS: Personal history of colon cancer Colonoscopy screening POSTOPERATIVE DIAGNOSIS: Tubular adenoma transverse colon, 2-cm Sigmoid diverticulosis Internal hemorrhoids, grade 2 OPERATION: Colonoscopy to the ileocecal valve and appendiceal orifice, cecum Colonoscopy with injection of Jesi ink, 4 mL, transverse colon Colonoscopy with hot snare polypectomy SURGEON: Leonor Tse MD. ANESTHESIA: MAC. INDICATIONS: The patient is an 62-year-old female with personal history of colon cancer status post resection over 5 years ago. She comes back for surveillance. Benefits and risks were described and informed consent was obtained. DESCRIPTION OF PROCEDURE: The patient had undergone Sutab prep. The patient had been brought into the operating room and laid in the left lateral decubitus position. After adequate intravenous sedation, the rectum was examined with 2% lidocaine jelly. External hemorrhoids were encountered. The rectal tone was within normal limits. No lesions were palpated in the rectal vault. An Olympus colonoscope was advanced until the cecum, ileocecal valve and appendiceal orifice were clearly viewed. The prep was good. Sigmoid diverticulosis was encountered. Large 2+ centimeter villous adenoma of the mid transverse colon along prior resection site removed in piecemeal. Injection of Jesi ink 4 mL on the transverse colon. No evidence of focal colitis was found. Retroflexion of the scope demonstrated grade 2 internal hemorrhoids without active bleeding or inflammation. The colon was desufflated. The patient had tolerated the procedure well. Withdrawal time was over 6 minutes. FINDINGS: Aronchick preparation quality scale 2 (1-5) Internal hemorrhoids, grade 2 External hemorrhoids, grade 2. No arteriovenous malformations. Sigmoid diverticulosis Removal of 2 polyps: - Snare polypectomy arge 2+ cm villous adenoma of the mid transverse colon along prior resection site removed in piecemeal. - Injection of Jesi ink 4 mL on the transverse colon. No focal colitis. RECOMMENDATIONS: Repeat colonoscopy in 3-6 months (Apr 2023) due to piecemeal resection of large adenoma and personal history of colon cancer Plan - Discharge Summary Discharge Rx Participant: No New Discharge Prescriptions: Continue Albuterol Inhaler [Ventolin Hfa Inhaler] 2 puff INHALATION Q4HR PRN PRN Reason: Shortness Of Breath Atenolol 50 mg PO QAM DULoxetine HCL [Cymbalta] 60 mg PO BID Levothyroxine Sodium [Synthroid] 125 mcg PO DAILY Budesonide-Formot 160-4.5 Mcg [Symbicort 160-4.5 Mcg Inhaler] 2 puff INHALATION BID PRN PRN Reason: asthma Rizatriptan Benzoate [Maxalt] 10 mg PO BID PRN PRN Reason: Migraine Headache Ondansetron Odt [Zofran ODT] 4 mg PO Q8HR PRN #20 tab PRN Reason: Nausea And Vomiting Esomeprazole Magnesium [NexIUM 24Hr] 40 mg PO BID traZODone HCL 25 mg PO HS PRN PRN Reason: sleep Pantoprazole [Protonix] 40 mg PO BID Discharge Medication List Albuterol Inhaler [Ventolin Hfa Inhaler] 2 puff INHALATION Q4HR PRN 12/26/13 [History] Atenolol 50 mg PO QAM 12/26/13 [History] DULoxetine HCL [Cymbalta] 60 mg PO BID 12/26/13 [History] Levothyroxine Sodium [Synthroid] 125 mcg PO DAILY 12/26/13 [History] Budesonide-Formot 160-4.5 Mcg [Symbicort 160-4.5 Mcg Inhaler] 2 puff INHALATION BID PRN 07/28/14 [History] Rizatriptan Benzoate [Maxalt] 10 mg PO BID PRN 07/28/14 [History] Ondansetron Odt [Zofran ODT] 4 mg PO Q8HR PRN #20 tab 02/04/15 [Rx] Esomeprazole Magnesium [NexIUM 24Hr] 40 mg PO BID 01/31/17 [History] traZODone HCL 25 mg PO HS PRN 10/01/19 [History] Pantoprazole [Protonix] 40 mg PO BID 01/31/23 [History] Follow up Appointment(s)/Referral(s): Leonor Tse MD [STAFF PHYSICIAN] - As Needed Patient Instructions/Handouts: Colorectal Polyps (GEN), Diverticulosis Diet (GEN), Diverticulosis (DC) Activity/Diet/Wound Care/Special Instructions: Repeat colonoscopy in 6 months, June 2023 Discharge Disposition: HOME SELF-CARE
== END 2023-02-02 11:39 | disposition home or self-care (01) ==
LOC: ORWHC2ENDO 08:52
PROVIDERS: ATTEND Surgery Plastic and Reconstructive Surgery
DX: Z12.11 Encounter for screening for malignant neoplasm of colon (principal); D12.3 Benign neoplasm of transverse colon; K57.30 Diverticulosis of large intestine without perforation or abscess without bleeding; K64.1 Second degree hemorrhoids; J45.909 Unspecified asthma, uncomplicated; M79.7 Fibromyalgia; K21.9 Gastro-esophageal reflux disease without esophagitis; M19.90 Unspecified osteoarthritis, unspecified site; H91.90 Unspecified hearing loss, unspecified ear; K58.9 Irritable bowel syndrome, unspecified; K91.0 Vomiting following gastrointestinal surgery; G43.909 Migraine, unspecified, not intractable, without status migrainosus; Z90.49 Acquired absence of other specified parts of digestive tract; Z98.84 Bariatric surgery status; Z98.891 History of uterine scar from previous surgery; Z90.710 Acquired absence of both cervix and uterus; Z90.722 Acquired absence of ovaries, bilateral; Z87.891 Personal history of nicotine dependence; Z80.8 Family history of malignant neoplasm of other organs or systems; Z85.038 Personal history of other malignant neoplasm of large intestine; Z79.51 Long term (current) use of inhaled steroids; Z88.2 Allergy status to sulfonamides; Z88.6 Allergy status to analgesic agent; Z91.018 Allergy to other foods; Z88.8 Allergy status to other drugs, medicaments and biological substances; Z88.0 Allergy status to penicillin; Z88.1 Allergy status to other antibiotic agents
CPT/HCPCS: 88305; 45385; 45381; J2704

== ENCOUNTER → 2025-02-21 | Outpatient (CLI) | payer OTHER ==
--- NOTE | 2025-02-21 09:35 | MM ---
Reason for Exam: Screening (asymptomatic). Last mammogram was performed 2 year(s) and 1 month(s) ago. Patient History: Menarche at age 11. First Full-Term at age 23. Left ovary removed at age 40. Right ovary removed at age 40. Hysterectomy at age 39. Postmenopausal. Patient has history of breast feeding. Risk Values: Eulalia 5 year model risk: 1.5%. NCI Lifetime model risk: 6.6%. Prior Study Comparison: 11/15/2013 Bilateral Screening Mammogram, [facility]. 04/01/2019 Bilateral Screening Mammogram, [facility]. 12/27/2022 Bilateral MG 3D screening mammo w/cad, [facility]. Tissue Density: The breasts are heterogeneously dense, which may obscure small masses. Findings: Analyzed By CAD. Right breast: There is no suspicious group of microcalcifications or new suspicious mass. Left breast: There is no suspicious group of microcalcifications or new suspicious mass. Overall Assessment: Negative, BI-RAD 1 Management: Screening Mammogram of both breasts in [address] [facility] will attempt to contact patient to return for supplemental views and ultrasound if indicated. Patient should continue monthly self-breast exams. A clinical breast exam by your physician is recommended on an annual basis. This exam should not preclude additional follow-up of suspicious palpable abnormalities. Note on Eulalia scores and lifetime risk: 1. A Eulalia score greater than 3% is considered moderate risk. If this is the case, consider specialist referral to assess eligibility for a risk reducing agent. 2. If overall lifetime risk for the development of breast cancer is 20% or higher, the patient may qualify for future screening with alternating mammogram and breast MRI. [facility], , 02/21/2025 9:31 AM. Electronically signed and approved by: Aston Garcia DO
== END ==
LOC: RADMAMWWP 07:01
PROVIDERS: ATTEND Family Medicine
DX: Z12.31 Encounter for screening mammogram for malignant neoplasm of breast (principal); R92.333 Mammographic heterogeneous density, bilateral breasts; Z78.0 Asymptomatic menopausal state
CPT/HCPCS: 77063; 77067

== ENCOUNTER 2025-03-12 09:30 | Day surgery (SDC) | payer OTHER ==
[2025-03-11 09:55] VITALS: BMI 25.0
--- NOTE | 2025-03-12 09:41 | P.GSHP ---
History of Present Illness H&P Date: 03/12/25 CHIEF COMPLAINT: Dysphagia and colon screen HISTORY OF PRESENT ILLNESS: The patient is a 64-year-old female who presents with dysphagia, gastroesophageal reflux disease and need for colon screen. Upper and lower endoscopy were offered for further evaluation and management. PAST MEDICAL HISTORY: Please see list. PAST SURGICAL HISTORY: Please see list. MEDICATIONS: Please see list. ALLERGIES: Please see list. SOCIAL HISTORY: No illicit drug use FAMILY HISTORY: No reports of Crohn disease or ulcerative colitis. REVIEW OF ORGAN SYSTEMS: CONSTITUTIONAL: No reports of fevers or chills. GI: Denies any blood in stools or constipation. PHYSICAL EXAM: VITAL SIGNS: Stable GENERAL: Well-developed pleasant in no acute distress. HEENT: No scleral icterus. Extraocular movements grossly intact. Moist buccal mucosa. NECK: Supple without lymphadenopathy. CHEST: Unlabored respirations. Equal bilateral excursions. CARDIOVASCULAR: Regular rate and rhythm. Distal 2+ pulses. ABDOMEN: Soft, nondistended. MUSCULOSKELETAL: No clubbing, cyanosis, or edema. ASSESSMENT: 1. Dysphagia and gastroesophageal reflux disease 2. Colon screen. PLAN: 1. Recommend proceeding with an upper and lower endoscopy Past Medical History Past Medical History: Asthma, Cancer, Fibromyalgia, GERD/Reflux, Hearing Disorder / Deafness, Osteoarthritis (OA), Thyroid Disorder Additional Past Medical History / Comment(s): HX COLON CA-no radiation or chemo, TACHYCARDIA, Herniated disc Back, Irritable Bowel Syndrome, MIGRAINE HEADACHES, insomnia, ulcer, diarrrhea, Tinnitus both ears History of Any Multi-Drug Resistant Organisms: None Reported Past Surgical History: Appendectomy, Back Surgery, Bowel Resection, Section, Cholecystectomy, Hernia Repair, Hysterectomy Additional Past Surgical History / Comment(s): david oophorectomy, BOWEL SURGERY X 2- 5" colon removed, Past Anesthesia/Blood Transfusion Reactions: Family History of Problems w/ Anesthesia, Motion Sickness, Postoperative Nausea & Vomiting (PONV) Additional Past Anesthesia/Blood Transfusion Reaction / Comment(s): MOTHER ALSO-PONV. no reactions w/ prior blood transfusions Smoking Status: Former smoker - Past Family History Father Family Medical History: Cancer Additional Family Medical History / Comment(s): brain and bone Mother Family Medical History: Deep Vein Thrombosis (DVT) Brother(s) Family Medical History: Cancer Additional Family Medical History / Comment(s): BONE CANCER/ #2 BRAIN CANCER ,thyroid cancer Sister(s) Family Medical History: Cancer, Deep Vein Thrombosis (DVT) Additional Family Medical History / Comment(s): MELENOMA CANCER Medications and Allergies Home Medications Medication Instructions Recorded Confirmed Type RX: Levothyroxine Sodium 125 mcg PO QAM 12/26/13 03/11/25 History [Synthroid] RX: Ondansetron Odt [Zofran ODT] 4 mg PO Q8HR PRN #20 tab 02/04/15 03/11/25 Rx RX: traZODone HCL 50 mg PO HS PRN 10/01/19 03/11/25 History RX: Pantoprazole [Protonix] 40 mg PO BID 01/31/23 03/11/25 History DULoxetine HCL [Cymbalta] 30 mg PO BID 03/11/25 03/11/25 History Simethicone [Gas-X] 125 mg PO DIRECTED PRN 03/11/25 03/11/25 History atenoloL [Tenormin] 50 mg PO QAM 03/11/25 03/11/25 History Allergies Allergy/AdvReac Type Severity Reaction Status Date / Time cephalexin monohydrate Allergy Severe Anaphylaxis Verified 03/11/25 09:45 [From Keflex] Sulfa (Sulfonamide Allergy Severe Rash/Hives Verified 03/11/25 09:45 Antibiotics) aspirin Allergy RINGING IN Verified 03/11/25 09:45 EARS, hives Beef Containing Products Allergy Nausea & Verified 03/11/25 09:45 Vomiting,diarrhea Cephalosporins Allergy Dyspnea, Verified 03/11/25 09:45 Hives clarithromycin Allergy Dyspnea, Verified 03/11/25 09:45 Hives Penicillins Allergy Dyspnea, Verified 03/11/25 09:45 Hives pregabalin [From Lyrica] Allergy BLURRED Verified 03/11/25 09:45 [facility]ISION
[2025-03-12] MEDS: IV FLUID CONTINUATION 1,000 ML IV ONE (09:46)
[2025-03-12 09:52] VITALS: TEMP 97
[2025-03-12] MEDS: LACTATED RINGERS 1,000 ML IV SCH (10:03)
[2025-03-12] MEDS: ONDANSETRON 4 MG/2 ML VIAL IVP STA (10:05)
[2025-03-12] MEDS ORDERED: PROPOFOL 10 MG/ML 20 ML VIAL IV ONE (11:22)
--- NOTE | 2025-03-12 11:36 | P.PCN ---
Date of Procedure: 03/12/25 Description of Procedure: PREOPERATIVE DIAGNOSIS: Hiatal hernia Gastroesophageal reflux disease. Dysphagia POSTOPERATIVE DIAGNOSIS: Gastroesophageal reflux disease. Diaphragmatic hiatal hernia Gastric polyps OPERATION: Esophagogastroduodenoscopy with cold forceps biopsies along esophagus, antrum and duodenum SURGEON: Leonor Tse MD ANESTHESIA: MAC. INDICATIONS: The patient is a 64-year-old female who presents with dysphagia and reflux disease. Benefits and risks of the procedure were described. Informed consent was obtained. DESCRIPTION: The patient was brought into the endoscopy suite and laid in the left lateral decubitus position. An Olympus gastroscope was passed along the posterior oropharynx down to the distal esophagus where the squamocolumnar junction was encountered at 35 cm from the incisors. The stomach was entered and no bile reflux was found. Additional findings are listed below. Biopsies with cold forceps were obtained of the antrum. The first through third portion of the duodenum was examined. Retroflexion of the scope confirmed Hill grade 3 lower esophageal valve. The squamocolumnar junction demonstrated LA grade C erosive esophagitis. The stomach was desufflated. The patient tolerated the procedure well. FINDINGS: Squamocolumnar junction 35 cm from the incisors. Diaphragmatic hiatus at 37 cm. Hiatal hernia, 2 cm Hill grade 3 lower esophageal valve. LA grade C erosive esophagitis. Biopsies obtained Biopsies obtained of the duodenum. Chronic gastritis with biopsies obtained. RECOMMENDATIONS: Upper endoscopy as needed.
--- NOTE | 2025-03-12 11:59 | P.PCN ---
Date of Procedure: 03/12/25 Description of Procedure: PREOPERATIVE DIAGNOSIS: Personal history of colon cancer History of right hemicolectomy Colonoscopy screening POSTOPERATIVE DIAGNOSIS: Tubular adenoma ileocolic mass, large Pandiverticulosis Sigmoid diverticulosis Internal hemorrhoids, grade 4 External hemorrhoids, grade 4 OPERATION: Colonoscopy to the ileocecal valve and appendiceal orifice, cecum Colonoscopy with hot snare polypectomy SURGEON: Leonor Tse MD. ANESTHESIA: MAC. INDICATIONS: The patient is an 64-year-old female who presents personal history of colon cancer status postresection. Last colonoscopy 5 years. Benefits and risks were described and informed consent was obtained. DESCRIPTION OF PROCEDURE: The patient had undergone Suprep. The patient had been brought into the operating room and laid in the left lateral decubitus position. After adequate intravenous sedation, the rectum was examined with 2% lidocaine jelly. External hemorrhoids were encountered. The rectal tone was within normal limits. No lesions were palpated in the rectal vault. An Olympus colonoscope was advanced until the cecum, ileocolic anastomosis. The prep was good. Pandiverticulosis with sigmoid diverticulosis was encountered. Colonic polyps were found and removed. No evidence of focal colitis was found. Retroflexion of the scope demonstrated grade 4 internal hemorrhoids without active bleeding or inflammation. The colon was desufflated. The patient had tolerated the procedure well. Withdrawal time was over 6 minutes. FINDINGS: Aronchick preparation quality scale 2 (1-5) Internal hemorrhoids, grade 4 External hemorrhoids, grade 4. No arteriovenous malformations. Sigmoid diverticulosis with pandiverticulosis Removal of 1 polyp: - Snare polypectomy ileocolic anastomosis, 30 mm mm tubulovillous adenoma, piecemeal resection No focal colitis. RECOMMENDATIONS: Given piecemeal resection of large adenoma, repeat colonoscopy 3 months, May 2025 Plan - Discharge Summary Discharge Rx Participant: No New Discharge Prescriptions: New Pantoprazole [Protonix] 40 mg PO DAILY #30 tab Continue Levothyroxine Sodium [Synthroid] 125 mcg PO QAM Ondansetron Odt [Zofran ODT] 4 mg PO Q8HR PRN #20 tab PRN Reason: Nausea And Vomiting traZODone HCL 50 mg PO HS PRN PRN Reason: sleep atenoloL [Tenormin] 50 mg PO QAM Simethicone [Gas-X] 125 mg PO DIRECTED PRN PRN Reason: abdominal discomfort DULoxetine HCL [Cymbalta] 30 mg PO BID Discontinued Pantoprazole [Protonix] 40 mg PO BID Discharge Medication List Levothyroxine Sodium [Synthroid] 125 mcg PO QAM 12/26/13 [History] Ondansetron Odt [Zofran ODT] 4 mg PO Q8HR PRN #20 tab 02/04/15 [Rx] traZODone HCL 50 mg PO HS PRN 10/01/19 [History] DULoxetine HCL [Cymbalta] 30 mg PO BID 03/11/25 [History] Simethicone [Gas-X] 125 mg PO DIRECTED PRN 03/11/25 [History] atenoloL [Tenormin] 50 mg PO QAM 03/11/25 [History] Pantoprazole [Protonix] 40 mg PO DAILY #30 tab 03/12/25 [Rx] Follow up Appointment(s)/Referral(s): Leonor Tse MD [STAFF PHYSICIAN] - 04/08/25 2:30 pm Patient Instructions/Handouts: Colorectal Polyps (GEN), Hiatal Hernia (DC) Activity/Diet/Wound Care/Special Instructions: Repeat colonoscopy 3 months, May 2025 Discharge Disposition: HOME SELF-CARE
[2025-03-12 12:13] VITALS: BP 120/79; PULSE 52; RESP 16
== END 2025-03-12 12:41 | disposition home or self-care (01) ==
LOC: ORWHC2ENDO 09:30
PROVIDERS: ATTEND Surgery Plastic and Reconstructive Surgery
DX: Z12.11 Encounter for screening for malignant neoplasm of colon (principal); K29.50 Unspecified chronic gastritis without bleeding; K31.7 Polyp of stomach and duodenum; K44.9 Diaphragmatic hernia without obstruction or gangrene; K57.30 Diverticulosis of large intestine without perforation or abscess without bleeding; K64.3 Fourth degree hemorrhoids; K64.4 Residual hemorrhoidal skin tags; K21.9 Gastro-esophageal reflux disease without esophagitis; J45.909 Unspecified asthma, uncomplicated; M19.90 Unspecified osteoarthritis, unspecified site; M79.7 Fibromyalgia; E07.9 Disorder of thyroid, unspecified; H91.90 Unspecified hearing loss, unspecified ear; G43.909 Migraine, unspecified, not intractable, without status migrainosus; Z79.890 Hormone replacement therapy; Z85.038 Personal history of other malignant neoplasm of large intestine; Z87.891 Personal history of nicotine dependence; Z88.0 Allergy status to penicillin; Z88.1 Allergy status to other antibiotic agents; Z88.2 Allergy status to sulfonamides; Z90.49 Acquired absence of other specified parts of digestive tract; Z90.710 Acquired absence of both cervix and uterus; Z90.722 Acquired absence of ovaries, bilateral; Z88.6 Allergy status to analgesic agent
CPT/HCPCS: 88305; 88342; 45385; 43239; J2405; J2704